=== PATIENT | female | born 1950 | race Caucasian/White ===

== ENCOUNTER 2024-11-27 21:20 | Emergency (ER) | payer BC, MEDICARE ==
[2024-11-27] MEDS: Diltiazem 25 MG/5 ML SDV IVPUSH ONE (21:41)
[2024-11-27 21:50] LABS: PLATELET COUNT,PLT 82 K/uL (130-375); RED BLOOD CELL COUNT 2.99 M/uL (3.77-5.24); WHITE BLOOD CELL COUNT,WBC 6.6 K/uL (3.2-11.0)
[2024-11-27 22:16] LABS: BAND ABSOLUTE MAN 2.31 K/uL; BAND PERCENT MAN 35 % (5-11); LYMPHOCYTES ABSOLUTE MAN 0.40 K/uL (0.8-3.3); LYMPHOCYTES PERCENT MAN 6 % (24-44); MONOCYTES ABSOLUTE MAN 0.33 K/uL (0.20-0.90); MONOCYTES PERCENT MAN 5 % (2-6); NEUTROPHILS ABSOLUTE MAN 3.56 K/uL (1.0-7.6); SEG NEUTROPHILS PERCENT MAN 54 % (36-66)
[2024-11-27 22:17] LABS: A/G RATIO 0.3 (1.2-2.2); ALANINE AMINOTRANSFERASE,ALT 20 U/L (12-78); ASPARTATE AMNIOTRANSFERASE,AST 51 U/L (15-37); BILIRUBIN TOTAL 9.3 mg/dL (0.2-1.0); BLOOD UREA NITROGEN,BUN 35 mg/dL (7-18); CARBON DIOXIDE,CO2 28 mmol/L (21-32); CHLORIDE,CL 96 mmol/L (100-108); CREATININE 2.2 mg/dL (0.6-1.0); EST CRCL DRUG DOSING (CG) 20.19 mL/min; ESTIMATED GFR 23 mL/min (>60); GLUCOSE RANDOM 126 mg/dL (74-106); POTASSIUM,K 3.8 mmol/L (3.6-5.2); PRO B-TYPE NATRIUR PEPT,BNPPRO 2674 pg/mL (5-125); PROTEIN TOTAL,TP 6.4 g/dL (6.4-8.2); SODIUM,NA 132 mmol/L (140-148); TROPONIN I HIGH SENSITIVITY 45.9 pg/mL (<=60.3)
[2024-11-27 22:19] LABS: TSH ULTRASENSITIVE 3.986 uIU/mL (0.358-3.740)
[2024-11-27] MEDS: Diltiazem 100 MG in Sodium Chloride 0.9% 100 ML IV SCH (22:22)
[2024-11-27] MEDS: Norepinephrine Bit/D5W Premix 4 MG in Premix Bag 1 BAG IV SCH (23:41)
[2024-11-27] MEDS: Enoxaparin 150 MG/1 ML Syringe SUBCUT ONE (23:49)
== END 2024-11-28 03:27 ==
LOC: JP.ED 21:20
DX: I50.9 Heart failure, unspecified (principal); I48.91 Unspecified atrial fibrillation; D64.9 Anemia, unspecified; E80.6 Other disorders of bilirubin metabolism; R79.89 Other specified abnormal findings of blood chemistry; E78.00 Pure hypercholesterolemia, unspecified; E03.9 Hypothyroidism, unspecified; Z91.030 Bee allergy status; Z79.890 Hormone replacement therapy; Z79.899 Other long term (current) drug therapy
CPT/HCPCS: 36415; 71045; 80053; 82248; 83735; 83880; 84443; 84484; 85025; 93010; 96365; 96366; 96368; 96376; 99285; 99291; J3490; J7030